=== PATIENT | female | born 1955 | race Caucasian/White ===

== ENCOUNTER → 2017-02-08 | Outpatient (CLI) | payer BC ==
--- NOTE | 2017-02-08 15:10 | XR ---
EXAMINATION TYPE: XR knee complete RT DATE OF EXAM: 02/08/2017 CLINICAL HISTORY: Medial pain after strain injury yesterday. TECHNIQUE: Three views of the right knee are obtained. COMPARISON: None. FINDINGS: Osseous structures are demineralized. There is no acute fracture/dislocation evident in rig ht knee. Asymmetric mild to moderate joint space loss medial tibiofemoral compartment is present. No significant spurring is seen. The overlying soft tissue appears unremarkable. IMPRESSION: There is no acute fracture or dislocation in the right knee.
== END | disposition home or self-care (01) ==
LOC: RADXRYALE 14:23
PROVIDERS: ATTEND Physician Assistant
DX: M25.561 Pain in right knee (principal)

== ENCOUNTER → 2017-12-28 | Outpatient (CLI) | payer BC ==
--- NOTE | 2017-12-28 10:44 | XR ---
EXAMINATION TYPE: XR wrist complete RT DATE OF EXAM: 12/28/2017 COMPARISON: NONE HISTORY: 62 year-old female right wrist pain after fall and injury last night TECHNIQUE: 3 views FINDINGS: There is a nondisplaced transverse metaphyseal fracture of the distal radius with mild dorsal angulat ion, marked soft tissue swelling, and a minimally displaced fracture of the ulnar styloid process. Th ere appears to be some softening of the fracture margins. Surrounding soft tissue swelling is noted. Mid carpal compartment remains intact. IMPRESSION: Nondisplaced Colles' fracture with mild dorsal angulation. Additional minimally displaced fracture of the ulnar styloid process. Some of these fracture margins appear softened. Correlate for possible nieto bacute fracture.
== END | disposition home or self-care (01) ==
LOC: RADXRYALE 10:00
PROVIDERS: ATTEND Physician Assistant Medical
DX: S52.531A Colles' fracture of right radius, initial encounter for closed fracture (principal); S52.611A Displaced fracture of right ulna styloid process, initial encounter for closed fracture

== ENCOUNTER → 2022-02-17 | Outpatient (CLI) | payer MEDICARE, BC ==
--- NOTE | 2022-02-17 17:46 | BD ---
EXAMINATION TYPE: Axial Bone Density DATE OF EXAM: 02/17/2022 COMPARISON: NONE CLINICAL HISTORY: 66 year old Female. ICD-10 CODE: M85.9 DISORDER OF BONE DENSITY AND STRUCTURE, UNS P Height: 64 Weight: 132.2 FRAX RISK QUESTIONS: Alcohol (3 or more units per day): no Family History (Parent hip fracture): no Glucocorticoids (More than 3mos): no (Ex: prednisone, prednisolone, methylprednisolone, dexamethasone, and hydrocortisone). History of Fracture in Adulthood: yes Secondary Osteoporosis: 1. Type 1 Diabetes: no 2. Hyperthyroidism: no 3. Menopause before 45: no 4. Malnutrition: no 5. Chronic liver disease: no Rheumatoid Arthritis: no Current Tobacco Use: no RISK FACTORS HISTORY OF: History of Wrist Fracture: right When: 2018 Surgery to Spine/Hip(right/left)/Wrist (right/left): no Family History of Osteoporosis: no Active: yes Diet low in dairy products/other sources of calcium: no Postmenopausal woman: yes Lost more than 2 inches in height since high school: no MEDICATIONS: Additional History: EXAM MEASUREMENTS: Bone mineral densitometry was performed using the Novacem System. Bone mineral density as measured about the Lumbar spine is: ----- L1-L4(G/cm2): 0.908 T Score Values are as follows: ----- L1: -2.4 ----- L2: -2.7 ----- L3: -2.1 ----- L4: -2.1 ----- L1-L4: -2.3 Bone mineral density : baseline Bone mineral density about the R hip (g/cm2): 0.668 Bone mineral density about the L hip (g/cm2): 0.678 T Score values are as follows: -----R Neck: -2.7 -----L Neck: -2.6 -----R Total: -2.2 -----L Total: -2.6 Bone mineral density : baseline FRAX%s: The graph provided illustrates a 23.3% chance for a major osteoporotic fx and a 6.4% chance f or the hips probability for fx in 10 years time. IMPRESSION: Osteoporosis (T Score less than -2.5). There is increased fracture risk and therapy is usually indicated based on age. Re-Screen 1-2 years. NOTE: T-SCORE=SD OF THE YOUNG ADULT MEAN.
== END | disposition home or self-care (01) ==
LOC: RADBDWWP 07:33
PROVIDERS: ATTEND Family Medicine
DX: M81.0 Age-related osteoporosis without current pathological fracture (principal); Z78.0 Asymptomatic menopausal state
CPT/HCPCS: 77080

== ENCOUNTER → 2022-03-15 | Outpatient (CLI) | payer MEDICARE, BC ==
--- NOTE | 2022-03-16 08:59 | MM ---
Reason for Exam: Screening (asymptomatic). Baseline mammogram. Patient History: Menarche at age 11. First Full-Term at age 17. Postmenopausal. Risk Values: Emma 5 year model risk: 1.2%. NCI Lifetime model risk: 4.0%. Prior Study Comparison: Patient's first Mammogram. Tissue Density: The breast tissue is heterogeneously dense. This may lower the sensitivity of mammography. Findings: Analyzed By CAD. No significant mass, suspicious microcalcification, or other discrete abnormality is seen. Overall Assessment: Negative, BI-RAD 1 Management: Screening Mammogram of both breasts in 1 year. 1. Patient should continue monthly self breast exams. 2. A clinical breast exam by your physician is recommended on an annual basis. 3. This exam should not preclude additional follow-up of suspicious palpable abnormalities. Electronically signed and approved by: Sofía Smith M.D. Radiologist
== END | disposition home or self-care (01) ==
LOC: RADMAMWWP 13:10
PROVIDERS: ATTEND Family Medicine
DX: Z12.31 Encounter for screening mammogram for malignant neoplasm of breast (principal); Z78.0 Asymptomatic menopausal state
CPT/HCPCS: 77063; 77067

== ENCOUNTER → 2023-03-16 | Outpatient (CLI) | payer MEDICARE, BC ==
--- NOTE | 2023-03-17 19:05 | MM ---
Reason for Exam: Screening (asymptomatic). Last screening mammogram was performed 12 month(s) ago. Patient History: Menarche at age 11. First Full-Term at age 17. Postmenopausal. Risk Values: Emma 5 year model risk: 1.2%. NCI Lifetime model risk: 3.9%. Prior Study Comparison: 03/15/2022 Bilateral MG 3D screening mammo w/cad, [facility]. Tissue Density: The breast tissue is heterogeneously dense. This may lower the sensitivity of mammography. Findings: Analyzed By CAD. Pattern appears symmetrical and stable. No significant interval change is evident. No suspicious groups of microcalcifications, spiculated or lobular masses, architectural distortion or other secondary signs of malignancy are mammographically apparent. Overall Assessment: Negative, BI-RAD 1 Management: Screening Mammogram of both breasts in 1 year. A negative mammogram report should not preclude additional follow up of suspicious palpable abnormalities. Patient should continue monthly self breast exam. A clinical breast exam by your physician is recommended on an annual basis and results should be correlated with mammographic findings. Electronically signed and approved by: Sarmad Clement D.O. Radiologis
== END | disposition home or self-care (01) ==
LOC: RADMAMWWP 10:31
PROVIDERS: ATTEND Family Medicine
DX: Z12.31 Encounter for screening mammogram for malignant neoplasm of breast (principal); Z78.0 Asymptomatic menopausal state
CPT/HCPCS: 77063; 77067